=== PATIENT | female | born 1995 | race Caucasian/White ===

== ENCOUNTER 2023-03-04 19:27 | Emergency (ER) | payer OTHER, SELFPAY ==
[2023-03-04 19:57] VITALS: BP 114/72; PULSE 105; RESP 16; TEMP 36.8; O2SAT 94; BMI 34.8
--- NOTE | 2023-03-04 21:04 | ED_ITS ---
HPI - URI/Sore Throat General: Chief Complaint: Upper Respiratory Infection Stated Complaint: sore throat Time Seen by Provider: 03/04/23 21:04 History of Present Illness: 27-year-old female comes in today with complaints of sore throat for the last 3 days. Patient complains of significant pharyngeal discomfort. Patient appears nontoxic. Patient reports some nasal drainage and occasional cough. Patient appears nontoxic. Patient reports no chronic medical problems. Associated symptoms: Deny chest pain or fever(s) Review of Systems General: Reports: 10 or more systems reviewed and unremarkable except in HPI and below Const: Reports: body aches; Denies: fever(s) ENMT: Reports: throat pain Card: Denies: chest pain Resp: Denies: dyspnea Physical Exam Const: COMMON NORMALS: alert HENMT: COMMON NORMALS: normocephalic and TM's normal bilaterally HEAD & SCALP: normocephalic TYMPANIC MEMBRANE: TM's normal bilaterally THROAT: posterior oropharynx abnormal cobblestoning Neck/C-Spine: COMMON NORMALS: full ROM Resp: COMMON NORMALS: normal respiratory effort and clear to auscultation bilaterally AUSCULTATION: clear to auscultation bilaterally Cardio: COMMON NORMALS: regular rate RATE: regular rate GI: COMMON NORMALS: non-tender Extremity: COMMON NORMALS: normal to inspection Neuro: SENSORIUM/ORIENTATION: Yes alert Skin: COMMON NORMALS: turgor normal GENERAL SKIN EXAM: turgor normal Course Vital Signs: Vital signs: Vital Signs Temperature 98.2 F 03/04/23 19:57 Pulse Rate 105 H 03/04/23 19:57 Respiratory Rate 16 03/04/23 19:57 Blood Pressure 114/72 03/04/23 19:57 Pulse Oximetry 94 03/04/23 19:57 Oxygen Delivery Me thod 03/04/23 19:57 MDM - URI/Sore Throat Medical Decision Making 27-year-old female comes in today for complaints of sore throat. On exam she has some cobblestoning. Vital signs are normal. Differential diagnosis includes but not limited to viral syndrome, allergic rhinitis with postnasal drip, strep pharyngitis. Strep test was negative. Patient was given 10 mg of dexamethasone p.o. for discomfort of the throat. Patient was recommended to further use acetaminophen and ibuprofen for pain along with throat lozenges. Patient reported understanding agreed to plan. No signs of severe illness was noted. Lab Data Laboratory Results Group A Strep Rapid Negative (Negative) 03/04/23 20:59 Discharge Plan Discharge Patient Disposition: Home Clinical Impression: Pharyngitis Qualifiers: Pharyngitis/tonsillitis etiology: unspecified etiology Qualified Code(s): J02.9 - Acute pharyngitis, unspecified Condition: Stable Discharge Orders: Discharge ED (Routine); Ordered 03/04/23 Ordered By: Wilfredo Espinosa Discharge Diet: Usual diet Discharge Activity: Increase activity as tolerated Patient Instructions: Pharyngitis (ED) Activity Restrictions/Additional Instructions: Home and rest. Drink plenty of water and fluids. Use acetaminophen and ibuprofen for pain. Use throat lozenges and sprays for further comfort relief. Follow-up with primary care as needed. Coding Level of Care Code ED Digital Content [employer] for [employer]
[2023-03-04 21:40] LABS: Rapid Strep A Test Negative (Negative)
[2023-03-04] MEDS: dexamethasone 4 mg Tablet 10 MG PO (21:48)
[2023-03-04 21:53] VITALS: BP 120/82; PULSE 78; RESP 14; O2SAT 99
--- NOTE | 2023-03-10 11:58 | DCPLANNER ---
advanced manager called patient due to no primary care physician - no answer at this time.
== END 2023-03-04 21:54 | disposition home or self-care (01) ==
PROVIDERS: Emergency Medicine; Emergency Provider Nurse Practitioner Family
DX: J02.9 Acute pharyngitis, unspecified (principal)
CPT/HCPCS: 87081; 87880; 99283; J8540